=== PATIENT | female | born 1990 | race Caucasian/White ===

== ENCOUNTER → 2016-12-26 | Outpatient (REF) ==
[~2016-12-26] MED LIST: BCP TD; LORTAB 5/500 501 TAB PO; LORTAB 7.5/5001 TAB PO; MOTRIN 600600 MG/TAB PO; NKDA; NO HOME MEDICATIONS; NORCO 325 MG-7.1 TAB PO; PERCOCET 325 MG1 TA2 PO; PERCOCET 5/321 UDTAB PO; PHENERGAN 25 TA25 MG PO; PHENERGAN25 MG RC; PRENATAL1 TA1
== END ==
LOC: ZLAB.WCH 14:49
DX: Z01.89 Encounter for other specified special examinations (principal)

== ENCOUNTER → 2020-11-15 | Outpatient (CLI) | payer BC | LOC: MC.RAD 10:24 | DX: N63.20 Unspecified lump in the left breast, unspecified quadrant (principal) ==